=== PATIENT | female | born 1965 | race Caucasian/White ===

== ENCOUNTER 2022-02-20 00:31 | Emergency (ER) | payer OTHER ==
[~2022-02-20] VITALS: Ht 154.9 cm; Wt 83.9 kg
[2022-02-20] MEDS ORDERED: LOSARTAN-HCTZ1 EACH PO (01:24)
[2022-02-20] MEDS ORDERED: MECL12.5 PO (01:25)
[2022-02-20] MEDS ORDERED: GABA100 PO (01:25)
[2022-02-20] MEDS ORDERED: ATOR10 PO (01:25)
== END 2022-02-20 06:26 | disposition home or self-care (01) ==
LOC: ER 00:31
DX: I10 Essential (primary) hypertension (principal); Z79.899 Other long term (current) drug therapy
CPT/HCPCS: 93005; 93010

== ENCOUNTER → 2022-07-23 | Outpatient (CLI) | payer OTHER ==
[~2022-07-23] MED LIST: ATOR10 PO; ATOR40TA PO; GABA100 PO; LOSARTAN-HCTZ1 EACH PO; MECL12.5 PO; NEURONTIN300 MG PO; PROM25 PO
[2022-07-23 14:12] LABS: Candida species (DNA Probe) Negative (NEGATIVE); G. vaginalis (DNA Probe) Positive (NEGATIVE); T. vaginalis (DNA Probe) Negative (NEGATIVE)
== END ==
LOC: LAB SHORT 08:45 → LAB 08:45
PROVIDERS: Physician Assistant
DX: N89.8 Other specified noninflammatory disorders of vagina (principal)
CPT/HCPCS: 87480; 87510; 87660

== ENCOUNTER → 2023-03-16 | Outpatient (CLI) | payer OTHER ==
[2023-03-25 05:08] LABS: HPV GENOTYPE 16 Not Detected; HPV GENOTYPE 18 Not Detected; HPV HIGH RISK Not Detected; HPV SOURCE Cervical
== END ==
LOC: LAB SHORT 16:42 → LAB 16:42
PROVIDERS: Obstetrics & Gynecology
DX: Z01.419 Encounter for gynecological examination (general) (routine) without abnormal findings (principal)
CPT/HCPCS: 87624; G0123

== ENCOUNTER → 2023-03-16 | Outpatient (CLI) | payer OTHER | LOC: LAB 08:20 → LAB SHORT 08:20 | DX: Q51.818 Other congenital malformations of uterus (principal) | CPT/HCPCS: 88305 ==

== ENCOUNTER 2023-04-15 10:26 | Day surgery (SDC) | payer OTHER ==
[~2023-04-15] VITALS: Ht 154.9 cm; Wt 103.2 kg
[~2023-04-15 10:26] MED LIST changes: +Lactated Ringer's 1,000 ML IV ONE
[2023-04-15] MEDS ORDERED: propofoL 20 ML IV ONE ×2 (11:06→12:06)
[2023-04-15] MEDS ORDERED: OMEP20ER PO (11:19)
[2023-04-15] MEDS ORDERED: Aspir 8181 MG PO (11:20)
[2023-04-15] MEDS ORDERED: LOSA50 PO (11:25)
[2023-04-15] MEDS ORDERED: Lactated Ringer's 1,000 ML IV ONE (11:38)
[2023-04-15] MEDS ORDERED: FentaNYL Citrate 50 MCG/ML 2 ML Injection ONE (12:13)
[2023-04-15] MEDS ORDERED: Dexamethasone Sod Phos 10 MG/ML 1ML VIAL ONE (12:16)
[2023-04-15] MEDS ORDERED: Metoclopramide HCl 5MG / ML 2ML Vial ONE (12:16)
[2023-04-15] MEDS ORDERED: Ondansetron HCl 2 MG / ML 2ML Vial ONE (12:16)
--- NOTE | 2023-04-15 12:19 | NUR ---
04/15/23 1219 Shaye Herron STRAIGHT CATHETER USED TO DRAIN BLADDER DURING STERILE PREP BY RN. 50ML OF CLEAR YELLOW URINE.
[2023-04-15] MEDS ORDERED: Ketorolac Tromethamine 30mg Vial ONE (12:35)
[2023-04-15 13:02] VITALS: BP 137/64
--- NOTE | 2023-04-15 13:41 | NUR ---
04/15/23 1341 Chava Cooper PT ABLE TO VOID URINE WITHOUT DIFFICULTY. STATED MILD BURNING BUT NOT UNCOMFORTABLE.
== END 2023-04-15 13:42 | disposition home or self-care (01) ==
LOC: ORSCSDS 10:26
PROVIDERS: Obstetrics & Gynecology
PROC: 0UDB8ZX Extraction of Endometrium, Via Natural or Artificial Opening Endoscopic, Diagnostic (ICD-10-PCS; principal; 2023-04-15 11:45)
DX: N95.0 Postmenopausal bleeding (principal); N84.0 Polyp of corpus uteri; I10 Essential (primary) hypertension; E11.9 Type 2 diabetes mellitus without complications; E66.01 Morbid (severe) obesity due to excess calories; Z68.41 Body mass index [BMI] 40.0-44.9, adult; Z79.899 Other long term (current) drug therapy; Z79.82 Long term (current) use of aspirin
CPT/HCPCS: 82947; 88305; J1100; J1885; J2405; J2704; J2765; J3010; J7120

== ENCOUNTER 2023-08-30 09:00 | Emergency (ER) | payer OTHER ==
[~2023-08-30] VITALS: Ht 154.9 cm; Wt 104.3 kg
[~2023-08-30 09:00] MED LIST changes: +Aspir 8181 MG PO; +LOSA50 PO; -Lactated Ringer's 1,000 ML IV ONE; +OMEP20ER PO
[2023-08-30] MEDS ORDERED: AMLO5 PO (09:55)
[2023-08-30] MEDS ORDERED: HydrALAZINE HCl 20 MG / ML 1ML Vial IV ONE ×2 (10:00→11:15)
[2023-08-30 10:52] LABS: BASOPHILS ABSOLUTE AUTO 0.07 K/mm3 (0.00-0.23); BASOPHILS PERCENT AUTO 1 % (0-2); EOSINOPHILS PERCENT AUTO 2 % (0-6); IMMATURE GRAN ABSOLUTE AUTO 0.03 K/mm3 (0.00-0.10); IMMATURE GRAN PERCENT AUTO 0 % (0-1); LYMPHOCYTES ABSOLUTE AUTO 3.18 K/mm3 (0.84-5.20); LYMPHOCYTES PERCENT AUTO 34 % (21-46); MONOCYTES ABSOLUTE AUTO 0.83 K/mm3 (0.16-1.47); MONOCYTES PERCENT AUTO 9 % (4-13); Mean Corpuscular HGB 29.2 pg (26.0-34.0); Mean Corpuscular HGB Conc 32.6 g/dL (31.5-36.5); Mean Corpuscular Volume 90 fL (80-100); Mean Platelet Volume 8.8 fL (9.1-12.4); NEUTROPHILS ABSOLUTE AUTO 5.07 K/mm3 (1.96-9.15); NEUTROPHILS PERCENT AUTO 54 % (41-73); Platelet Count 370 K/mm3 (150-400); RDW Coefficient Variation 13.6 % (11.7-14.2); RDW Standard Deviation 45.1 fL (35.1-46.3); White Blood Cell Count 9.38 K/mm3 (4.00-11.30)
[2023-08-30 10:55] LABS: Albumin, Blood 3.9 g/dL (3.4-5.0); Bilirubin, Total 0.4 mg/dL (0.1-1.0); Bun/Creatinine Ratio 22.5 (12.0-20.0); Calcium, Blood 9.7 mg/dL (8.5-10.1); Creatinine, Blood 0.62 mg/dL (0.40-1.00); Total Protein, Blood 7.9 g/dL (6.4-8.2)
[2023-08-30 12:15] VITALS: BP 182/84
== END 2023-08-30 12:25 | disposition home or self-care (01) ==
LOC: ER 09:00
PROVIDERS: Emergency Medicine
DX: I16.0 Hypertensive urgency (principal); I10 Essential (primary) hypertension; Z79.82 Long term (current) use of aspirin; Z79.899 Other long term (current) drug therapy
CPT/HCPCS: 80053; 84484; 85025; 93005; 93010; 96374; 96376; 99285-25; J0360

== ENCOUNTER → 2024-09-26 | Outpatient (CLI) | payer OTHER ==
[~2024-09-26] MED LIST changes: +AMLO5 PO; +HYDCHL25 PO; +IBUP600 PO; +METPRE4DP PO; +Robaxin750 MG PO
[2024-09-26 18:35] LABS: Alanine Aminotransfer (ALT/SGP 38.0 U/L (12-78); Albumin, Blood 3.7 g/dL (3.4-5.0); Albumin/Globulin Ratio 0.9 (0.8-1.8); Anion Gap 2.0 mmol/L (3-11); Aspartate Aminotrans (AST/SGOT 21.0 U/L (12-37); Bilirubin, Total 0.4 mg/dL (0.1-1.0); Blood Urea Nitrogen 10.0 mg/dL (8-24); CO2, Blood 28.0 mmol/L (21-32); Calcium, Blood 9.0 mg/dL (8.5-10.1); Chloride, Blood 106.0 mmol/L (98-108); Creatinine, Blood 0.65 mg/dL (0.40-1.00); Globulin, Blood 3.9 g/dL (2.2-4.0); Glucose, Blood 102.0 mg/dL (70-99); Potassium, Blood 3.1 mmol/L (3.5-5.5); Sodium, Blood 133.0 mmol/L (136-145); Total Protein, Blood 7.6 g/dL (6.4-8.2)
== END ==
LOC: LAB 14:05 → LAB SHORT 14:05
PROVIDERS: Physician Assistant
DX: I10 Essential (primary) hypertension (principal); Z12.11 Encounter for screening for malignant neoplasm of colon; R73.03 Prediabetes
CPT/HCPCS: 36415; 80053; 83036